=== PATIENT | male | born 1970 | race Caucasian/White ===

== ENCOUNTER 2019-09-26 17:15 | Inpatient (IN) | payer BC ==
[~2019-09-26] VITALS: Ht 188 cm; Wt 123.2 kg
[2019-09-26 18:55] LABS: CLARITY,URINE CLEAR (Clear); COLOR,URINE YELLOW (Yellow); GLUCOSE, URINE 100 mg/dl (Neg); KETONES,URINE TRACE mg/dl (Neg); LEUKOCYTE ESTERASE ,URINE NEGATIVE (Neg); NITRITES, URINE NEGATIVE (Neg); OCCULT BLOOD,URINE NEGATIVE (Neg); PH,URINE 8.5 (4.8-8.0); PROTEIN,URINE NEGATIVE (Neg); UROBILINOGEN,URINE >=8.0 E.U/dL (0.2-1.0)
[2019-09-26 19:03] LABS: UA COLLECTION TYPE CLN CATCH MIDSTREAM
[2019-09-26 19:27] LABS: BASOPHILS # (AUTO) 0.1 X10'3 (0-0.2); BASOPHILS % (AUTO) 1.1 % (0-1); EOSINOPHILS # (AUTO) 0.1 X10'3 (0-0.9); EOSINOPHILS % (AUTO) 1.7 % (0-6); HEMATOCRIT 27.5 % (42.0-52.0); HEMOGLOBIN 9.6 g/dl (14.0-17.9); LYMPHOCYTES # (AUTO) 1.4 X10'3 (1.1-4.8); LYMPHOCYTES % (AUTO) 20.5 % (21-51); MEAN CORPUSCULAR HEMOGLOBIN 37.1 PG (27.0-31.0); MEAN CORPUSCULAR HGB CONC 34.9 g/dL (33.0-36.5); MEAN CORPUSCULAR VOLUME 106.2 FL (78-98); MEAN PLATELET VOLUME 8.6 FL (7.4-10.4); MONOCYTES # (AUTO) 1.3 X10'3 (0-0.9); MONOCYTES % (AUTO) 19.3 % (2-12); NEUTROPHILS # (AUTO) 3.9 X10'3 (1.8-7.7); NEUTROPHILS % (AUTO) 57.4 % (42-75); PLATELET COUNT 65 X10'3 (140-440); RED BLOOD COUNT 2.59 X10'6 (4.70-6.10); RED CELL DISTRIBUTION WIDTH 16.7 % (11.5-14.5); WHITE BLOOD COUNT 6.9 X10'3 (4.5-11.0)
[2019-09-26] MEDS ORDERED: thiamine 100mg/ml 2ml inj. IV ONE (19:35)
[2019-09-26] MEDS ORDERED: folic acid 1mg/0.2ml inj IV ONE (19:35)
[2019-09-26] MEDS ORDERED: piperacillin/tazo 3.375gm/50ml 50 ML IV ONE (19:35)
[2019-09-26 19:46] LABS: PARTIAL THROMBOPLASTIN TIME 33 SECONDS (22-32)
[2019-09-26 20:03] LABS: ALANINE AMINOTRANSFERASE 50 U/L (12-78); ALBUMIN 2.4 G/DL (3.4-5.0); ALKALINE PHOSPHATASE 109 IU/L (46-116); BILIRUBIN,TOTAL 21.4 MG/DL (0.1-1.0); BLOOD UREA NITROGEN 17 MG/DL (7-18); CALCIUM 7.7 MG/DL (8.5-10.1); CHLORIDE 97 MMOL/L (99-107); LIPASE 791 U/L (73-393); TOTAL CARBON DIOXIDE 28.7 MMOL/L (24-32)
[2019-09-26] MEDS ORDERED: iohexol 300mg/ml 100ml inj. ONE (20:11)
[2019-09-26] MEDS ORDERED: FURO40TA4 PO (20:14)
[2019-09-26] MEDS ORDERED: BUPR1TAB45 SL (20:14)
[2019-09-26 20:15] LABS: LACTIC SEPSIS 1.5 MMOL/L (0.4-2.0)
[2019-09-26 20:19] LABS: ALBUMIN/GLOBULIN RATIO 0.6 (1.1-1.5); BUN/CREATININE RATIO 12.1 (5.4-32.0); TOTAL PROTEIN 6.4 G/DL (6.4-8.2); eGFR 54 ML/MIN
[2019-09-26] MEDS ORDERED: IRBE1TAB67 PO (20:23)
[2019-09-26] MEDS ORDERED: AMA1T PO (20:23)
[2019-09-26 20:26] LABS: ANION GAP 7 (8-16); SODIUM 133 MMOL/L (135-145)
[2019-09-26 20:27] LABS: ACETAMINOPHEN < 2.0 UG/ML (10-30); ETHANOL < 0.010 GM/DL (0.0-0.010); GLUCOSE 62 MG/DL (70-104)
[2019-09-26 20:29] LABS: ANISOCYTOSIS 1+; PLATELET ESTIMATE NORMAL; POLYCHROMASIA FEW; POTASSIUM 2.8 MMOL/L (3.5-5.1); TOTAL CELLS COUNTED 100
[2019-09-26 20:31] LABS: ASPARTATE AMINO TRANSFERASE 171 U/L (10-37)
[2019-09-26] MEDS ORDERED: potassium 10mEq/100ml NS w/LIDOcaine (10mg/bag) IV ONE (21:00)
[2019-09-26] MEDS ORDERED: potassium Cl 10 mEq/100mL bag IV ONE ×2 (21:05→21:45)
[2019-09-26 21:19] LABS: MAGNESIUM 1.7 MG/DL (1.5-2.4)
[2019-09-26] MEDS ORDERED: magnesium 2GM in 50ml NS 50 ML IV ONE (21:45)
[2019-09-26] MEDS ORDERED: phenobarbital sod 130mg/ml inj. IV ONE (22:00)
[2019-09-27] MEDS ORDERED: potassium CL 10mEq/100ml bag 100 ML IV PRN (00:30)
[2019-09-27] MEDS ORDERED: thiamine inj. 100 MG in normal saline 100ml IV soln 100 ML IV ONE (00:30)
[2019-09-27] MEDS ORDERED: dextrose 50%-water 50ml dispensing syringe IV PRN ×2 (00:30)
[2019-09-27] MEDS ORDERED: insulin Lispro (HumaLOG) vial - multi-dose SQ SCH (00:30)
[2019-09-27] MEDS ORDERED: glucagon, human recombinant 1mg kit SUBCUT PRN (00:30)
[2019-09-27] MEDS ORDERED: dextrose ORAL solution 15 GM/59 ML bottle PO PRN (00:30)
[2019-09-27] MEDS ORDERED: ondansetron/PF 4mg/2ml inj IV PRN (00:30)
[2019-09-27] MEDS ORDERED: MESSAGE TO PHARMACY PO ONE (00:30)
[2019-09-27] MEDS ORDERED: thiamine 100mg/ml 2ml inj. IV ONE (00:45)
[2019-09-27] MEDS: LORazepam 2 mg/ml vial IV PRN ×3 (01:01→10:28)
[2019-09-27] MEDS: ceFAZolin 1GM/D5W- ADD-VANTAGE 50 ML IV SCH ×3 (01:21→16:22)
[2019-09-27] MEDS: potassium CL 10mEq/100ml bag 100 ML IV PRN ×2 (01:54→03:25)
--- NOTE | 2019-09-27 02:00 | NUR ---
PT ARRIVED TO 4014A FROM ER. PT HAS BEEN ORIENTED TO THE ROOM. 2RN SKIN CHECK PERFORMED. RECEIVED REPORT FROM ALISON MELCHOR PRIOR TO PT'S ARRIVAL.
[2019-09-27 02:21] VITALS: BP 114/46
--- NOTE | 2019-09-27 06:19 | NUR ---
Problems reprioritized. Patient report given, questions answered & plan of care reviewed with ALISON BOX.
--- NOTE | 2019-09-27 06:43 | NUR ---
RECEIVED REPORT FROM GAVIN ROSAS
[2019-09-27 07:50] LABS: URINE AMPHETAMINE SCREEN NEGATIVE (Neg); URINE BARBITUATE SCREEN POSITIVE (Neg); URINE BENZODIAZEPINES SCREEN NEGATIVE (Neg); URINE CANNABINOID SCREEN NEGATIVE (Neg); URINE COCAINE SCREEN NEGATIVE (Neg); URINE METHADONE SCREEN NEGATIVE (Neg); URINE OPIATE SCREEN NEGATIVE (Neg); URINE PHENCYCLIDINE SCREEN NEGATIVE (Neg)
[2019-09-27] MEDS: dextrose ORAL solution 15 GM/59 ML bottle PO PRN ×4 (07:55→21:54)
[2019-09-27] MEDS: lactulose 20gm/30ml cup PO SCH (07:55)
[2019-09-27] MEDS: buprenorphine/naloxone 8MG-2MG SUBlingual film SL SCH (07:56)
[2019-09-27] MEDS: K and/or MAG REPLACEMENT MC SCH ×2 (08:00→20:00)
[2019-09-27] MEDS: spironolactone 25 MG tablet PO SCH (08:02)
[2019-09-27] MEDS: potassium Cl 20 mEq SR tablet PO PRN ×3 (08:15→22:42)
[2019-09-27 09:56] VITALS: BP 102/39
[2019-09-27] MEDS: ciprofloxacin 250mg tablet PO SCH ×2 (10:28→22:17)
[2019-09-27] MEDS: zinc sulfate 220mg capsule PO SCH ×2 (10:33→20:27)
[2019-09-27 11:44] VITALS: BP 110/55
--- NOTE | 2019-09-27 18:22 | NUR ---
Patient in room [facility] 4014. I have received report from Araseli ROSAS and had the opportunity to ask questions and assume patient care.
[2019-09-27] MEDS: lactobacillus rhamnosus 10,000 MMU CELLS/CAPSULE PO SCH (20:27)
[2019-09-27] MEDS: insulin glargine (Lantus) pen - multi-dose SQ SCH (21:00)
[2019-09-27 22:04] VITALS: BP 113/60
--- NOTE | 2019-09-27 22:32 | NUR ---
Set page to Dr Stoll PAGER ID: [phone] MESSAGE: regarding Osvaldo Corral 4013O Acute hepatic failure type II Diabetic All day low blood sugars running in 60s even after the dextrose oral drink 15 gm carb. Would like order for D5 to control sugars better. Thank you Zachery ROSAS #[id number]
[2019-09-27] MEDS: dextrose 5%-normal saline 1,000 ML IV SCH (22:41)
[2019-09-28] MEDS: ceFAZolin 1GM/D5W- ADD-VANTAGE 50 ML IV SCH ×3 (00:16→15:45)
--- NOTE | 2019-09-28 06:42 | NUR ---
Patient in room [facility]TH[facility] 4014. I have received report from Amie and had the opportunity to ask questions and assume patient care.
[2019-09-28 07:27] VITALS: BP 162/72
[2019-09-28] MEDS: zinc sulfate 220mg capsule PO SCH ×2 (08:45→20:08)
[2019-09-28] MEDS: lactobacillus rhamnosus 10,000 MMU CELLS/CAPSULE PO SCH ×2 (08:45→20:08)
[2019-09-28] MEDS: lactulose 20gm/30ml cup PO SCH (08:45)
[2019-09-28] MEDS: spironolactone 25 MG tablet PO SCH (08:46)
[2019-09-28] MEDS: buprenorphine/naloxone 8MG-2MG SUBlingual film SL SCH (08:46)
[2019-09-28 09:00] VITALS: BP 132/65
--- NOTE | 2019-09-28 09:18 | NUR ---
Pt verbilzed pain level of 4 in his rightl lower extremity when he touches it, but no pain when he it sitting. No other pain was verbalized Addendum: 09/28/19 at 1014 by Anna Stoll STUDENT KRISTOPHER Amended: Links added.
--- NOTE | 2019-09-28 10:12 | NUR ---
pt verbalized pain level of 5 when touching his lower right extremity. Otherwise no pain reported. Addendum: 09/28/19 at 1014 by Anna SUMMERS Amended: Links added.
[2019-09-28 10:50] LABS: BASOPHILS # (AUTO) 0.1 X10'3 (0-0.2); BASOPHILS % (AUTO) 1.3 % (0-1); EOSINOPHILS # (AUTO) 0.1 X10'3 (0-0.9); EOSINOPHILS % (AUTO) 2.6 % (0-6); HEMATOCRIT 29.1 % (42.0-52.0); HEMOGLOBIN 10.2 g/dl (14.0-17.9); LYMPHOCYTES # (AUTO) 0.9 X10'3 (1.1-4.8); LYMPHOCYTES % (AUTO) 16.2 % (21-51); MEAN CORPUSCULAR HEMOGLOBIN 37.2 PG (27.0-31.0); MEAN CORPUSCULAR VOLUME 106.2 FL (78-98); MEAN PLATELET VOLUME 8.3 FL (7.4-10.4); MONOCYTES # (AUTO) 1.3 X10'3 (0-0.9); MONOCYTES % (AUTO) 23.9 % (2-12); NEUTROPHILS # (AUTO) 3.1 X10'3 (1.8-7.7); PLATELET COUNT 92 X10'3 (140-440); RED BLOOD COUNT 2.74 X10'6 (4.70-6.10); RED CELL DISTRIBUTION WIDTH 17.3 % (11.5-14.5); WHITE BLOOD COUNT 5.5 X10'3 (4.5-11.0)
[2019-09-28 11:01] LABS: ALANINE AMINOTRANSFERASE 44 U/L (12-78); ALBUMIN 2.2 G/DL (3.4-5.0); ALBUMIN/GLOBULIN RATIO 0.6 (1.1-1.5); ALKALINE PHOSPHATASE 110 IU/L (46-116); ANION GAP 6 (8-16); ASPARTATE AMINO TRANSFERASE 137 U/L (10-37); BILIRUBIN,TOTAL 23.5 MG/DL (0.1-1.0); BLOOD UREA NITROGEN 13 MG/DL (7-18); BUN/CREATININE RATIO 13.1 (5.4-32.0); CALCIUM 8.5 MG/DL (8.5-10.1); CHLORIDE 99 MMOL/L (99-107); CREATININE 0.99 MG/DL (0.60-1.10); GLUCOSE 139 MG/DL (70-104); POTASSIUM 4.1 MMOL/L (3.5-5.1); SODIUM 134 MMOL/L (135-145); TOTAL CARBON DIOXIDE 28.6 MMOL/L (24-32); TOTAL PROTEIN 6.1 G/DL (6.4-8.2); eGFR 81 ML/MIN
[2019-09-28 11:20] LABS: ANISOCYTOSIS 1+; PLATELET ESTIMATE DECREASED; TOTAL CELLS COUNTED 100
--- NOTE | 2019-09-28 11:49 | NUR ---
In addition, pts right lower extremity is red swollen and has an open wound on the ocampo midline with optifoam dressing. This is the area where the patient reported pain. Addendum: 09/28/19 at 1155 by Anna SUMMERS Amended: Links added.
--- NOTE | 2019-09-28 11:51 | NUR ---
In addition, patients right lower extremity is swollen, reddened, and has an open wound on the ocampo midline. This is where the area where the patient reported his pain. Addendum: 09/28/19 at 1155 by Anna SUMMERS Amended: Links added.
--- NOTE | 2019-09-28 11:53 | NUR ---
Pain level of 4 being reported is on the right lower extremity. Addendum: 09/28/19 at 1155 by Anna SUMMERS Amended: Links added.
[2019-09-28] MEDS: ciprofloxacin 250mg tablet PO SCH (12:21)
[2019-09-28] MEDS: K and/or MAG REPLACEMENT MC SCH ×2 (13:12→20:00)
[2019-09-28 18:00] VITALS: BP 130/51
--- NOTE | 2019-09-28 18:15 | NUR ---
RECEIVED REPORT FROM WALDEMAR ROSAS AND ASSUMED PATIENT CARE
[2019-09-28] MEDS: dextrose 5%-normal saline 1,000 ML IV SCH (20:08)
[2019-09-28] MEDS: insulin glargine (Lantus) pen - multi-dose SQ SCH (21:00)
[2019-09-28 22:00] VITALS: BP 108/63
[2019-09-29] MEDS: ciprofloxacin 250mg tablet PO SCH ×2 (00:03→09:52)
[2019-09-29] MEDS: ceFAZolin 1GM/D5W- ADD-VANTAGE 50 ML IV SCH ×2 (00:03→07:59)
[2019-09-29] MEDS ORDERED: LORazepam 1 MG tablet PO PRN (00:30)
[2019-09-29] MEDS ORDERED: LORazepam 2 mg/ml vial IV PRN (00:30)
[2019-09-29] MEDS: dextrose 5%-normal saline 1,000 ML IV SCH (03:28)
[2019-09-29 06:00] VITALS: BP 104/56
[2019-09-29 06:49] LABS: ALANINE AMINOTRANSFERASE 33 U/L (12-78); ALBUMIN/GLOBULIN RATIO 0.6 (1.1-1.5); ALKALINE PHOSPHATASE 108 IU/L (46-116); ANION GAP 7 (8-16); ASPARTATE AMINO TRANSFERASE 102 U/L (10-37); BILIRUBIN,TOTAL 21.5 MG/DL (0.1-1.0); BLOOD UREA NITROGEN 10 MG/DL (7-18); BUN/CREATININE RATIO 13.3 (5.4-32.0); CALCIUM 7.7 MG/DL (8.5-10.1); CHLORIDE 102 MMOL/L (99-107); CREATININE 0.75 MG/DL (0.60-1.10); GLUCOSE 94 MG/DL (70-104); POTASSIUM 3.1 MMOL/L (3.5-5.1); SODIUM 136 MMOL/L (135-145); TOTAL CARBON DIOXIDE 27.1 MMOL/L (24-32); TOTAL PROTEIN 5.5 G/DL (6.4-8.2); eGFR > 90 ML/MIN
[2019-09-29 06:57] LABS: BASOPHILS # (AUTO) 0.1 X10'3 (0-0.2); BASOPHILS % (AUTO) 1.1 % (0-1); EOSINOPHILS # (AUTO) 0.2 X10'3 (0-0.9); HEMATOCRIT 27.6 % (42.0-52.0); HEMOGLOBIN 9.6 g/dl (14.0-17.9); LYMPHOCYTES % (AUTO) 18.8 % (21-51); MEAN CORPUSCULAR HGB CONC 34.7 g/dL (33.0-36.5); MEAN CORPUSCULAR VOLUME 106.5 FL (78-98); MEAN PLATELET VOLUME 8.4 FL (7.4-10.4); MONOCYTES # (AUTO) 1.2 X10'3 (0-0.9); MONOCYTES % (AUTO) 22.6 % (2-12); NEUTROPHILS # (AUTO) 2.9 X10'3 (1.8-7.7); NEUTROPHILS % (AUTO) 53.5 % (42-75); PLATELET COUNT 97 X10'3 (140-440); RED BLOOD COUNT 2.59 X10'6 (4.70-6.10); RED CELL DISTRIBUTION WIDTH 17.3 % (11.5-14.5); WHITE BLOOD COUNT 5.4 X10'3 (4.5-11.0)
[2019-09-29] MEDS: lactulose 20gm/30ml cup PO SCH (07:58)
[2019-09-29] MEDS: spironolactone 25 MG tablet PO SCH (07:58)
[2019-09-29] MEDS: lactobacillus rhamnosus 10,000 MMU CELLS/CAPSULE PO SCH (07:58)
[2019-09-29] MEDS: potassium Cl 20 mEq SR tablet PO PRN ×2 (07:59→12:34)
[2019-09-29] MEDS: buprenorphine/naloxone 8MG-2MG SUBlingual film SL SCH ×2 (07:59→08:00)
[2019-09-29] MEDS: zinc sulfate 220mg capsule PO SCH (08:00)
--- NOTE | 2019-09-29 08:50 | NUR ---
Patient was given am medications and stated that he did not want to take Suboxone sublingual. Nurse returned an unopened suboxone sublingual into return box. Charge Nurse notified as well.
[2019-09-29] MEDS: K and/or MAG REPLACEMENT MC SCH (08:51)
--- NOTE | 2019-09-29 09:40 | NUR ---
Dr. Malik visited patient in room. Patient was in bed resting. Dr was made aware of eyes and possible eye infection. New order is for vigamox 1 drop in each eye for 5 days. also stated that the patient will be discharged today and that he did not want to participate in any rehabs. Dr. Malik said that when patient is discharged, that he can take eye drops with him from hospital. Dr will input discharge orders in today. Vital signs are stable, we will continue to monitor patient.
[2019-09-29 10:00] VITALS: BP 122/56
[2019-09-29] MEDS ORDERED: moxifloxacin 0.5% ophthalmic drops 3ml EACHEYE SCH (10:00)
[2019-09-29] MEDS ORDERED: CEPH500C5 PO (11:04)
[2019-09-29] MEDS ORDERED: LACT10SO7 PO (11:04)
[2019-09-29 12:08] LABS: PLATELET ESTIMATE DECREASED; TOTAL CELLS COUNTED 100
[2019-09-29 12:09] LABS: ANISOCYTOSIS 1+
--- NOTE | 2019-09-29 13:15 | NUR ---
Patient stable for discharge. Arranged patients ride with patients sister. Prescriptions were sent home with patient. PIV removed, cannula intact. Education was provided to patient, who refuses to go to rehab and refuses the resources we have provided for him. Family was made aware of patients decision. Futher education was provided for patient on drinking alcohol, diet, and management of his medications, diabetes, and wounds.
[2019-10-01] MEDS ORDERED: LORazepam 1 MG tablet PO PRN (00:30)
== END 2019-09-29 13:15 | disposition home or self-care (01) | DRG 432 ==
LOC: ER 17:15 → ED HOLD 09-27 00:27 → ORTHO 4S 09-27 01:40
PROVIDERS: ADMIT Internal Medicine; ATTEND Family Medicine
PROC: BW211ZZ Computerized Tomography (CT Scan) of Abdomen and Pelvis using Low Osmolar Contrast (ICD-10-PCS; principal; 2019-09-26)
DX: K74.60 Unspecified cirrhosis of liver (principal); G93.41 Metabolic encephalopathy; K85.90 Acute pancreatitis without necrosis or infection, unspecified; L03.115 Cellulitis of right lower limb; L03.116 Cellulitis of left lower limb; E11.9 Type 2 diabetes mellitus without complications; E87.6 Hypokalemia; G89.29 Other chronic pain; I10 Essential (primary) hypertension
CPT/HCPCS: 36415; 74177; 76700; 80053; 80305; 80320; 80329; 81003; 82140; 82948; 83036; 83605; 83690; 83735; 84132; 84443; 85025; 85610; 85730; 87040; 87081; 96365; 96367; 96368; 96375; 97110; 97116; 97161; 97530; 99285; G0378; J0690; J1815; J2060; J2543; J2560; J3411; J3475; J3480; J3490; J7042; Q9967